=== PATIENT | female | born 1930 | race Caucasian/White ===

== ENCOUNTER 2017-08-23 13:08 | Emergency (ER) | payer MEDICARE, OTHER ==
--- NOTE | 2017-08-23 13:26 | EDM.PDOC ---
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 Pt states she felt well this morning. She got up and went to see Dr. Burton at the clinic in [place] for a check up and blood tests, but had no acute complaints at that time. She then came to [facility] to shop with her daughter. While at the store the pain began. Initial pt describes a couple of sudden crampy-sharp jabs at the RUQ followed shortly after by a sudden severe and "overwhelming" pain through the entire right abdomen. Pt's daughter reports the pt became very pale and diaphoretic. The pt states she thought she was going to vomit, but never did. Last BM was approx. 8:00AM today, and was somewhat loose. Denies any black, bloody, or melanotic stool. Last ate at 07:30AM this morning. Onset: Sudden Onset Date: 08/23/17 Duration: Constant, Getting Worse Location: Reports: Abdomen Quality: Reports: Ache, Pressure, Sharp Severity: Severe Improves with: Reports: None Worsens with: Reports: Other (palpation), Movement Associated Symptoms: Reports: No Other Symptoms Right Upper Abdomen Pain Score (Numeric/FACES): 9 - Related Data Allergies Allergy/AdvReac Type Severity Reaction Status Date / Time No Known Allergies Allergy Verified 08/23/17 13:19 Home Meds: Home Meds Aspirin [Halfprin] 81 mg PO DAILY 08/23/17 [History] Lutein/Minerals/Vit A,C & E [Ocuvite] 1 tab PO DAILY 08/23/17 [History] Multivitamin [Daily Multiple Vitamin] 1 tab PO DAILY 08/23/17 [History] glipiZIDE [Glipizide ER] 5 mg PO DAILY 08/23/17 [History] Past Medical History HEENT History: Reports: Impaired Vision Endocrine/Metabolic History: Reports: Diabetes, Type II, Obesity/BMI 30+ Hematologic History: Reports: Anemia, Iron Deficiency Social & Family History - Family History Family Medical History: Noncontributory - Alcohol Use Alcohol Use History: No - Recreational Drug Use Recreational Drug Use: No - Living Situation & Occupation Occupation: Retired ED ROS GENERAL - Review of Systems Review Of Systems: ROS reveals no pertinent complaints other than HPI. ED EXAM, GI/ABD - Physical Exam Exam: See Below Exam Limited By: No Limitations General Appearance: Alert, Mild Distress (due to abdominal pain), Obese Eyes: Bilateral: Normal Appearance (no scleral icterus) Ears: Normal External Exam, Normal Canal, Hearing Grossly Normal, Normal TMs Nose: Normal Inspection, Normal Mucosa, No Blood Throat/Mouth: Normal Inspection, Normal Lips, Normal Voice, No Airway Compromise Head: Atraumatic, Normocephalic Neck: Normal Inspection, Non-Tender, Full Range of Motion Respiratory/Chest: No Respiratory Distress, Lungs Clear, No Accessory Muscle Use , Chest Non-Tender, Decreased Breath Sounds Cardiovascular: No JVD, Irregularly Irregular, Other (B/L lower extremity edema with chronic venous stasis, chronic/stable per pt) GI/Abdominal Exam: No Abnormal Bruit, Distended, Guarding, Rebound, Tender ( acutely tender to palpation at RUQ and RLQ, with moderately severe tenderness throughout the remainder of the abdomen), Abnormal Bowel Sounds (very hypoactive bowel sounds) (Female) Exam: Deferred Rectal (Female) Exam: Deferred Back Exam: No: CVA Tenderness (L), CVA Tenderness (R) Extremities: Non-Tender, Pedal Edema Neurological: Alert, Oriented, CN II-XII Intact, Normal Cognition, No Motor/ Sensory Deficits Psychiatric: Normal Mood Skin Exam: Warm, Dry, Intact EKG INTERPRETATION EKG Date: 08/23/17 Time: 13:48 Rhythm: A-Fib Rate (Beats/Min): 89 [place]: Normal P-Wave: Absent QRS: Other (low voltage) ST-T: Normal QT: Normal Comparison: NA - No Prior EKG Course - Vital Signs Last Recorded V/S: Last Vital Signs Temp 37.7 C 08/23/17 13:19 Pulse 89 08/23/17 16:00 Resp 20 08/23/17 16:00 BP 113/52 L 08/23/17 16:00 Pulse Ox 93 L 08/23/17 16:00 - Orders/Labs/Meds Orders: Active Orders 24 hr Category Date Time Status EKG 12 Lead [EKG Documentation Completion] [] STAT Care 08/23/17 13:43 Active Peripheral IV Care [] . DIRECTED Care 08/23/17 13:41 Active CULTURE BLOOD [] Stat Lab 08/23/17 13:38 Results CULTURE BLOOD [] Stat Lab 08/23/17 13:58 Received UA W/MICROSCOPIC [URIN] Stat Lab 08/23/17 13:41 Ordered Piperacillin/Tazobactam [Zosyn] 4.5 gm Med 08/23/17 16:14 Ordered Sodium Chloride 0.9% [Normal Saline] 50 ml IV ONETIME Sodium Chloride 0.9% [Saline Flush] Med 08/23/17 13:41 Active 10 ml FLUSH ASDIRECTED PRN Blood Culture x2 Reflex Set [OM.PC] Stat Oth 08/23/17 13:43 Ordered Peripheral IV Insertion Adult [OM.PC] Stat Oth 08/23/17 13:41 Ordered Medication Orders Piperacillin Sod/Tazobactam (Sod 4.5 gm/ Sodium Chloride) 50 mls @ 100 mls/hr IV ONETIME ONE Stop: 08/23/17 16:43 Sodium Chloride (Saline Flush) 10 ml FLUSH ASDIRECTED PRN PRN Reason: Keep Vein Open Last Admin: 08/23/17 13:36 Dose: 10 ml Labs: Laboratory Tests 08/23/17 08/23/17 08/23/17 Range/Units 13:38 13:38 13:38 WBC 11.0 H (5.0-10.0) 10^3/uL RBC 4.03 L (4.2-5.4) 10^6/uL Hgb 9.1 L (12.0-16.0) g/dL Hct 29.7 L (37.0-47.0) % MCV 73.7 L (80-100) fL MCH 22.6 L (27.0-34.0) pg MCHC 30.6 L (33.0-35.0) g/dL Plt Count 371 (150-450) 10^3/uL Neut % (Auto) 91.2 H (42.2-75.2) % Lymph % (Auto) 4.7 L (20.5-50.1) % [place] % (Auto) 3.7 (2-8) % Eos % (Auto) 0.2 L (1.0-3.0) % Baso % (Auto) 0.2 (0.0-1.0) % Sodium 137 (135-145) mmol/L Potassium 3.5 L (3.6-5.0) mmol/L Chloride 103 (101-111) mmol/L Carbon Dioxide 25.0 (21.0-31.0) mmol/L Anion Gap 12.5 BUN 18 (7-18) mg/dL Creatinine 0.8 (0.6-1.3) mg/dL Est Cr Clr Drug Dosing 37.38 mL/min Estimated GFR (MDRD) > 60 BUN/Creatinine Ratio 22.50 Glucose 122 H (74-105) mg/dL Lactic Acid 1.5 (0.5-2.2) mmol/L Calcium 8.6 (8.4-10.2) mg/dl Total Bilirubin 0.5 (0.2-1.0) mg/dL AST 19 (10-42) IU/L ALT 12 (10-60) IU/L Alkaline Phosphatase 41 L (42-121) IU/L Troponin I < 0.02 (0.00-0.02) ng/ml Total Protein 6.3 L (6.7-8.2) g/dl Albumin 3.1 L (3.2-5.5) g/dl Globulin 3.2 Albumin/Globulin Ratio 0.97 Amylase 36 (28-100) U/L Lipase 19 L (22-51) U/L Meds: Medications Generic Name Dose Route Start Last Admin Trade Name Freq PRN Reason Stop Dose Admin Piperacillin Sod/Tazobactam 50 mls @ 100 mls/hr 08/23/17 16:14 Sod 4.5 gm/ Sodium Chloride IV 08/23/17 16:43 ONETIME ONE Sodium Chloride 10 ml 08/23/17 13:41 08/23/17 13:36 Saline Flush FLUSH 10 ml ASDIRECTED PRN Administration Keep Vein Open Discontinued Medications Generic Name Dose Route Start Last Admin Trade Name Freq PRN Reason Stop Dose Admin Hydromorphone HCl 0.5 mg 08/23/17 13:42 08/23/17 13:56 Dilaudid IVPUSH 08/23/17 13:43 0.5 mg ONETIME ONE Administration Hydromorphone HCl 0.5 mg 08/23/17 14:30 08/23/17 14:35 Dilaudid IVPUSH 08/23/17 14:31 0.5 mg ONETIME ONE Administration Sodium Chloride 1,000 mls @ 999 mls/hr 08/23/17 13:43 08/23/17 13:52 Normal Saline IV 08/23/17 14:43 999 mls/hr .BOLUS ONE Administration Iopamidol 100 ml 08/23/17 14:24 08/23/17 15:49 Isovue-300 (61%) IVPUSH 08/23/17 14:25 100 ml ONETIME ONE Administration Ondansetron HCl 4 mg 08/23/17 13:42 08/23/17 13:54 Zofran IV 08/23/17 13:43 4 mg ONETIME ONE Administration - Radiology Interpretation Free Text/Narrative:: CT Abd/Pelvis: diverticulitis with perf. and free air; see Rad. report. Departure - Departure Time of Disposition: 16:29 Disposition: DC/Tfer to Acute Hospital 02 Condition: Serious Clinical Impression: New onset atrial fibrillation Diverticulitis of intestine with perforation and abscess Qualifiers: Diverticulitis site: large intestine Diverticulitis bleeding: unspecified bleeding status Qualified Code(s): K57.20 - Diverticulitis of large intestine with perforation and abscess without bleeding - Discharge Information Referrals: PCP,Not In Area [Primary Care Provider] - Forms: ED Department Discharge, Interfacility Transfer EMTALA - My Orders Last 24 Hours: My Active Orders 08/23/17 13:38 CULTURE BLOOD [BC] Stat 08/23/17 13:41 Peripheral IV Care [RC] . DIRECTED UA W/MICROSCOPIC [URIN] Stat Sodium Chloride 0.9% [Saline Flush] 10 ml FLUSH ASDIRECTED PRN Peripheral IV Insertion Adult [OM.PC] Stat 08/23/17 13:43 EKG 12 Lead [EKG Documentation Completion] [RC] STAT Blood Culture x2 Reflex Set [OM.PC] Stat 08/23/17 13:58 CULTURE BLOOD [BC] Stat 08/23/17 16:14 Piperacillin/Tazobactam [Zosyn] 4.5 gm Sodium Chloride 0.9% [Normal Saline] 50 ml IV ONETIME - Assessment/Plan Last 24 Hours: My Active Orders 08/23/17 13:38 CULTURE BLOOD [BC] Stat 08/23/17 13:41 Peripheral IV Care [RC] . DIRECTED UA W/MICROSCOPIC [URIN] Stat Sodium Chloride 0.9% [Saline Flush] 10 ml FLUSH ASDIRECTED PRN Peripheral IV Insertion Adult [OM.PC] Stat 08/23/17 13:43 EKG 12 Lead [EKG Documentation Completion] [RC] STAT Blood Culture x2 Reflex Set [OM.PC] Stat 08/23/17 13:58 CULTURE BLOOD [BC] Stat 08/23/17 16:14 Piperacillin/Tazobactam [Zosyn] 4.5 gm Sodium Chloride 0.9% [Normal Saline] 50 ml IV ONETIME
[2017-08-23] MEDS ORDERED: Sodium Chloride 0.9% 10 ML Syringe FLUSH PRN (13:41)
[2017-08-23] MEDS ORDERED: HYDROmorphone 0.5 MG/0.5 ML Syringe IVPUSH ONE ×2 (13:42→14:30)
[2017-08-23] MEDS ORDERED: Ondansetron 4 MG/2 ML SDV IV ONE (13:42)
[2017-08-23] MEDS ORDERED: Sodium Chloride 0.9% 1,000 ML IV ONE (13:43)
[2017-08-23 14:09] LABS: ANION GAP 12.5; CHLORIDE,CL 103 mmol/L (101-111); SODIUM,NA 137 mmol/L (135-145)
[2017-08-23] MEDS ORDERED: Iopamidol 612 MG/ML 100 ML Bottle IVPUSH ONE (14:24)
[2017-08-23] MEDS ORDERED: Piperacillin/Tazobactam 4.5 GM in Sodium Chloride 0.9% 50 ML IV ONE (16:14)
--- NOTE | 2017-08-23 16:19 | CT ---
Clinical history: 86-year-old 200 pound diabetic female (white blood cell count 11,000) complaining o f "severe" right abdominal pain. Scan technique: Volume acquisition of data from the abdomen and pelvis obtained without oral contrast but before/during intravenous administration 100 cc nonionic Isovue contrast (2.5 cc/s via injector) while the patient was lying supine on the Siemens multi slice CT scanner [place], [place]. All data archived in the PAC system for storage, reformatting axial/sagittal/co viki planes and study. Interpretation: Abnormal. 1. Osteoporosis; insufficiency fractures T11/L1 vertebral bodies; mild anterolisthesis L4 vertebral b trae. 2. "Dirty fat" concentrated in the RLQ the abdomen and ascitic fluid in the dependent right paracolic gutter but.... adjacent appendix appears to be normal configuration and caliber without appendicolit h or abnormal wall edema. Free intraperitoneal air. 3. *Numerous diverticula distal descending left and sigmoid colon which extends over into the right l ower quadrant i.e. diverticulitis. 4. No sign of abscess or mechanical bowel obstruction (terminal ileum unremarkable). 5. No uterus and no adnexal mass lesion. Normal gallbladder, unenhanced liver, stomach, spleen, pancr eas and adrenal glands. 6. Asymmetrically small left kidney. No renal cortical mass lesion, nephrolithiasis (suggest phleboli th vein on the right coronal images #35 and sagittal image #56) or obstructive uropathy i.e. no pyelo caliectasis or ureterectasis. Normal urinary bladder. 7. Dense calcifications normal caliber aortoiliac vessels. No aneurysm or dissection. 8. Small dependent pleural effusions with underlying lower lobe atelectasis/infiltrate posteriorly on the left. CONCLUSION: Acute sigmoid diverticulitis i.e. diverticular inflammation with perforation.
--- NOTE | 2017-08-24 18:21 | EKG ---
08/23/2017 - ALEX GUAMAN M - TIME: 1348 hours. FINDINGS: As per my reading, atrial fibrillation at 89, low voltage throughout. MOD /[id number]
== END 2017-08-23 16:47 ==
LOC: DL.ED 13:08
DX: K57.20 Diverticulitis of large intestine with perforation and abscess without bleeding (principal); I48.91 Unspecified atrial fibrillation; E11.9 Type 2 diabetes mellitus without complications; Z79.82 Long term (current) use of aspirin
CPT/HCPCS: 36415; 74170; 80053; 82150; 83605; 83690; 84484; 85025; 87040; 93005; 93010; 96361; 96374; 96375; 96376; 99285; J1170; J2405; J2543; J7030; J7050; Q9967; 99283